=== PATIENT | female | born 1970 | race Caucasian/White ===

== ENCOUNTER → 2016-12-19 | Day surgery (SDC) | payer OTHER ==
[~2016-12-19] MED LIST: Lactated Ringers 1,000 ML IV SCH; Propofol 200 MG/20 ML SDV IV ONE
--- NOTE | 2016-12-22 08:13 | OR ---
DATE OF OPERATION: 12/19/2016 PREOPERATIVE DIAGNOSIS: 1. DIVERTICULITIS. 2. ALTERED BOWEL HABITS. POSTOPERATIVE DIAGNOSIS: 1. DIVERTICULITIS. 2. ALTERED BOWEL HABITS. SURGEON: Ilia Meadows MD PROCEDURE: FULL-LENGTH COLONOSCOPY WITH BIOPSY X2. ANESTHESIA: PERSONAL SERVICE REPRESENTATIVE due to anxiety disorder. COMPLICATIONS: None. SPECIMEN: Sigmoid biopsy x2. FINDINGS: 1. Full-length colonoscopy. 2. Funk diverticulosis, moderate. 3. Resolving diverticulitis in mid to distal sigmoid colon. RECOMMENDATIONS: Medical followup with Adebayo Davenport. INDICATIONS: The patient is a 46-year-old with ongoing issues with diverticulitis. Xi sent her for colonoscopy. DESCRIPTION OF PROCEDURE: The patient was prepped and draped, placed in the left lateral decubitus position. A lubricated Olympus colonoscope was inserted and easily advanced to the cecum. Direct visualization of the ileocecal valve and appendiceal orifice was accomplished. The bowel prep was adequate. Upon withdrawal, the patient does have a few scattered diverticula even in the right colon, very mild in severity in the ascending and transverse area, but present. The right colon and transverse colon showed no signs of any inflammatory change. No vascular abnormalities or signs of colitis. There were no polyps, masses, ulcerations, or bleeding sites throughout the entire length of the colon. Once into the descending colon, the patient had significant diverticular disease starting most notably in the distal descending area. The sigmoid colon is moderate to severe in regard to her diverticular disease. In the mid to distal sigmoid area between 40 and 35 cm, the patient did have a little inflammatory change albeit very mild. 2 biopsies were taken of this area likely representing peridiverticular inflammation. The rectal vault itself was unremarkable. Retroflexion of scope in the rectum showed no anal lesions. Air was then suctioned, scope was removed without complication. ESTHER/YANA /[id number]
== END ==
LOC: CC.SDS 08:36
PROVIDERS: ATTEND Family Medicine
DX: K57.30 Diverticulosis of large intestine without perforation or abscess without bleeding (principal); K57.32 Diverticulitis of large intestine without perforation or abscess without bleeding; F41.9 Anxiety disorder, unspecified; Z79.899 Other long term (current) drug therapy; Z98.890 Other specified postprocedural states; Z78.9 Other specified health status
CPT/HCPCS: 36415; 45380; 84703; J2704; J7120

== ENCOUNTER → 2021-01-04 | Day surgery (SDC) | payer OTHER ==
[~2021-01-04] MED LIST changes: +Ondansetron 4 MG/2 ML SDV ONE; -Propofol 200 MG/20 ML SDV IV ONE; +Propofol 200 MG/20 ML SDV ONE
--- NOTE | 2021-01-04 11:11 | OR ---
DATE OF OPERATION: 01/04/2021 PREOPERATIVE DIAGNOSIS: ABNORMAL CT SCAN. POSTOPERATIVE DIAGNOSIS: ABNORMAL CT SCAN. SURGEON: Ilia Meadows MD PROCEDURE: DIAGNOSTIC COLONOSCOPY WITH FORCEPS POLYP REMOVAL X1. ANESTHESIA: MAC. COMPLICATIONS: None. SPECIMEN: Small flat sessile polyp [id number] sigmoid colon. FINDINGS: 1. Full-length diagnostic colonoscopy. 2. Pandiverticulosis mild to moderate. 3. Small sessile polyp, sigmoid colon. 4. No signs of any worrisome lesions. RECOMMENDATIONS: Followup colonoscopy in 5 years. INDICATIONS: Mrs. Jeff was in for abdominal pain. CT showed likely diverticulitis with her known history of significant diverticular disease. Radiology felt there was a thickened area, which was likely due to that, but recommended endoscopy to verify. DESCRIPTION OF PROCEDURE: The patient was prepped and draped, placed in the left lateral decubitus position. A lubricated Olympus colonoscope was inserted and easily advanced to the cecum. Direct visualization of the ileocecal valve and appendiceal orifice was accomplished. The bowel prep was adequate. Upon withdrawal of the scope, the patient does have pandiverticulosis noted all the way over to the deep right colon, mild throughout until the sigmoid, which is moderate. There were no obvious inflammatory changes. The ascending, transverse, and descending colons were otherwise unremarkable. The patient did have one small flat sessile polyp along the haustral fold around 40 cm. It was removed with 3 cold forceps biopsies in its entirety. No other polyps, masses, lesions, or other abnormalities were seen. The rectal vault appeared benign. Retroflexion showed no perianal lesions. Air was suctioned, scope removed without complication. ESTHER/YANA /[id number]
== END ==
LOC: CC.SDS 09:27
PROVIDERS: ATTEND Family Medicine
DX: K51.40 Inflammatory polyps of colon without complications (principal); K57.30 Diverticulosis of large intestine without perforation or abscess without bleeding; F41.9 Anxiety disorder, unspecified; E78.5 Hyperlipidemia, unspecified; Z79.899 Other long term (current) drug therapy; Z98.890 Other specified postprocedural states
CPT/HCPCS: J2405; J2704